=== PATIENT | female | born 1975 | race Hispanic/Latino ===

== ENCOUNTER 2020-08-16 20:35 | Emergency (ER) | payer OTHER ==
[2020-08-16] MEDS ORDERED: Acetaminophen 500 MG TAB ONE (21:05)
[2020-08-16] MEDS ORDERED: Ventolin HFA Inhaler 60 PUFF INHALER ONE (21:13)
[2020-08-16 21:16] LABS: #Monocytes 0.2 10x3/uL (0.0-1.1); %Basophils 0.2 % (0.0-2.0); %Lymphocytes 28.1 % (18.0-47.0); %Monocytes 2.6 % (0.0-10.0); %Neutrophils 68.8 % (40.0-75.0); Hemoglobin 14.8 g/dL (12.0-15.5); Mean Corpuscular HGB CONC 32.9 g/dL (32.0-36.0); Mean Corpuscular Hemoglobin 28.7 pg (27.0-33.0); Mean Corpuscular Volume 87.2 fl (81.6-98.3); Mean Platelet Volume 12.2 fl (7.4-10.4); Platelet Count 152 10x3/uL (150-450); RBC Distribution Width 12.4 % (11.5-14.5); Red Blood Cell (RBC) Count 5.16 10x6/uL (3.90-5.03); White Blood Cell (WBC) Count 5.8 10x3/uL (3.5-10.5)
[2020-08-16 21:33] LABS: ALT (SGPT) 51 U/L (8-55); AST (SGOT) 47 U/L (5-34); Alkaline Phosphatase 110 U/L (40-110); Anion Gap 16 mmol/L (10-20); BUN (Urea Nitrogen) 9 mg/dL (7.0-18.7); Bilirubin, Total 0.2 mg/dL (0.2-1.2); Calc. Creatinine Clearance 0 mL/min (70-130); Calcium 8.5 mg/dL (7.8-10.44); Carbon Dioxide 22 mmol/L (22-29); Chloride 100 mmol/L (98-107); Globulin 2.9 g/dL (2.4-3.5); Glucose 437 mg/dL (70-105); Potassium 4.4 mmol/L (3.5-5.1); Protein, Total 6.9 g/dL (6.0-8.3); Sodium 134 mmol/L (136-145)
[2020-08-16 22:00] LABS: Actual Bicarbonate (HCO3v) 25 mEq/L (22-28); Base Excess -0.5 mEq/L (-2.0 to +3.0); Chloride (VBG) 100 mmol/L (98-106); Hemoglobin (Hb) 14.9 g/dL (11.7-15.5); Potassium (VBG) 3.93 mmol/L (3.70-5.30); Puncture Site Other Site; RapidComm Collect By LAB; Sodium 135.4 mmol/L (133-146); pH (venous) 7.37 (7.32-7.43)
[2020-08-16 22:22] LABS: Bilirubin Neg (Negative); Blood, Urine Negative (Negative); Clarity Clear (Clear); Glucose, Urine (Dipstick) >=1000 mg/dL (Negative); Ketone, Urine Negative (Negative); Leukocyte Negative (Negative); Nitrite Negative (Negative); Protein, Urine (Dipstick) 30 mg/dl (Neg-Trace); Specific Gravity, Urine 1.005 (1.002-1.036); Urobilinogen Normal mg/dL (Less than 2)
[2020-08-16 22:36] LABS: Bacteria/HPF Rare-Few HPF (None Seen); RBC/HPF 0-3 HPF (0-3); Squamous Epithelial 0-3 HPF (0-3); WBC/HPF 0-3 HPF (0-3)
== END 2020-08-17 00:33 | disposition home or self-care (01) ==
LOC: CSHERS 20:35
DX: U07.1 COVID-19 (principal); J12.82 Pneumonia due to coronavirus disease 2019; E11.9 Type 2 diabetes mellitus without complications
CPT/HCPCS: 36415; 36416; 71045; 80053; 81003; 81015; 82010; 82805; 83605; 84484; 85025; 85379; 87040; 87086; 93005; 94664

== ENCOUNTER 2020-08-17 02:21 | Inpatient (IN) | payer OTHER ==
[2020-08-17 04:32] LABS: SARS-CoV-2 NAA Rapid Test DETECTED (NotDetected)
[2020-08-17] MEDS ORDERED: Bisacodyl 5 MG TAB PO PRN (07:32)
[2020-08-17] MEDS ORDERED: HYDROcodone/Acetaminophen 5/325 mg Tablet PO PRN (07:32)
[2020-08-17] MEDS ORDERED: Ondansetron PF 4 MG/2 ML Vial IVP PRN (07:32)
[2020-08-17] MEDS ORDERED: Dextrose 5% in Water 1,000 ML IV PRN (07:43)
[2020-08-17] MEDS ORDERED: Dextrose 50% Abboject 50 ML SYRINGE SLOW IVP PRN (07:43)
[2020-08-17] MEDS ORDERED: Acetaminophen 325 MG TAB ONE (08:57)
[2020-08-17] MEDS ORDERED: Enoxaparin Sodium 40 MG/0.4 ML SYRINGE SC SCH (09:00)
[2020-08-17] MEDS ORDERED: Dexamethasone 4 MG TAB ONE (10:00)
[2020-08-17] MEDS ORDERED: cefTRIAXone\\ROCEPHIN 2 GM VIAL ONE (10:01)
[2020-08-17] MEDS ORDERED: Ondansetron PF 4 MG/2 ML Vial ONE (10:01)
[2020-08-17] MEDS ORDERED: Enoxaparin Sodium 40 MG/0.4 ML SYRINGE ONE (10:01)
[2020-08-17] MEDS ORDERED: Famotidine/PF 20 mg/2ml Vial ONE (10:02)
[2020-08-17] MEDS: Ascorbic Acid 500 mg Chewable Tablet PO SCH (17:51)
[2020-08-17] MEDS: Dexamethasone 4 MG TAB PO SCH (17:51)
[2020-08-17] MEDS: Zinc Sulfate 220 MG CAP PO SCH (17:52)
[2020-08-17] MEDS: Famotidine/PF 20 mg/2ml Vial SLOW IVP SCH ×2 (17:52→21:32)
[2020-08-17] MEDS: cefTRIAXone\\ROCEPHIN 2 GM in Sodium Chloride 0.9% 100 ML IVPB SCH (17:52)
[2020-08-17] MEDS: HumaLOG 300 UNITS/3 ML VIAL SC PRN (17:53)
[2020-08-17] MEDS ORDERED: REMDESIVIR (EUA) 200 MG in Sodium Chloride 0.9% 250 ML 210 ML IV SCH (18:30)
[2020-08-17 18:40] VITALS: BMI 38.2
[2020-08-17] MEDS: Acetaminophen 325 MG TAB PO PRN (19:23)
[2020-08-17 21:40] LABS: Bilirubin Neg (Negative); Blood, Urine Negative (Negative); Clarity Clear (Clear); Glucose, Urine (Dipstick) 100 mg/dL (Negative); Ketone, Urine 50 mg/dL (Negative); Leukocyte 25 (Negative); Nitrite Negative (Negative); Protein, Urine (Dipstick) 100 mg/dl (Neg-Trace); Urobilinogen Normal mg/dL (Less than 2)
[2020-08-17 21:50] LABS: Bacteria/HPF 1+ HPF (None Seen); Mucous/LPF Rare LPF (<2+); RBC/HPF None Seen HPF (0-3)
[2020-08-18] MEDS: Acetaminophen 325 MG TAB PO PRN ×2 (01:15→06:31)
[2020-08-18 06:50] LABS: #Monocytes 0.2 10x3/uL (0.0-1.1); #Neutrophils 4.5 10x3/uL (1.5-8.4); %Basophils 0.1 % (0.0-2.0); %Lymphocytes 31.6 % (18.0-47.0); %Monocytes 3.2 % (0.0-10.0); %Neutrophils 64.5 % (40.0-75.0); Mean Corpuscular HGB CONC 33.1 g/dL (32.0-36.0); Mean Corpuscular Hemoglobin 29.3 pg (27.0-33.0); Mean Corpuscular Volume 88.5 fl (81.6-98.3); Mean Platelet Volume 11.7 fl (7.4-10.4); Platelet Count 161 10x3/uL (150-450); Red Blood Cell (RBC) Count 4.78 10x6/uL (3.90-5.03); White Blood Cell (WBC) Count 6.9 10x3/uL (3.5-10.5)
[2020-08-18 07:05] LABS: Anion Gap 15 mmol/L (10-20); BUN (Urea Nitrogen) 6 mg/dL (7.0-18.7); Calc. Creatinine Clearance 155 mL/min (70-130); Calcium 8.3 mg/dL (7.8-10.44); Carbon Dioxide 27 mmol/L (22-29); Chloride 102 mmol/L (98-107); Glucose 195 mg/dL (70-105); Potassium 3.7 mmol/L (3.5-5.1); Sodium 140 mmol/L (136-145)
[2020-08-18] MEDS: HumaLOG 300 UNITS/3 ML VIAL SC PRN ×4 (07:16→21:37)
[2020-08-18] MEDS: Famotidine/PF 20 mg/2ml Vial SLOW IVP SCH ×2 (09:45→21:37)
[2020-08-18] MEDS: Dexamethasone 4 MG TAB PO SCH (09:45)
[2020-08-18] MEDS: Enoxaparin Sodium 40 MG/0.4 ML SYRINGE SC SCH ×2 (09:45→21:36)
[2020-08-18] MEDS: Ascorbic Acid 500 mg Chewable Tablet PO SCH (09:45)
[2020-08-18] MEDS: Aspirin Chewable 81 MG TAB PO SCH (09:46)
[2020-08-18] MEDS: Zinc Sulfate 220 MG CAP PO SCH (09:46)
[2020-08-18] MEDS: cefTRIAXone\\ROCEPHIN 2 GM in Sodium Chloride 0.9% 100 ML IVPB SCH (09:59)
[2020-08-18 14:12] LABS: Hemoglobin A1c 9.9 % (4.0-6.0)
[2020-08-18] MEDS: REMDESIVIR (EUA) 100 MG in Sodium Chloride 0.9% 250 ML 230 ML IV SCH (17:23)
[2020-08-19] MEDS: HumaLOG 300 UNITS/3 ML VIAL SC PRN ×3 (06:43→21:38)
[2020-08-19] MEDS: Ascorbic Acid 500 mg Chewable Tablet PO SCH (09:05)
[2020-08-19] MEDS: Famotidine/PF 20 mg/2ml Vial SLOW IVP SCH ×2 (09:06→21:39)
[2020-08-19] MEDS: Aspirin Chewable 81 MG TAB PO SCH (09:06)
[2020-08-19] MEDS: Lantus 1000 UNITS/10 ML VIAL SC SCH (09:06)
[2020-08-19] MEDS: Enoxaparin Sodium 40 MG/0.4 ML SYRINGE SC SCH ×2 (09:06→21:39)
[2020-08-19] MEDS: Zinc Sulfate 220 MG CAP PO SCH (09:06)
[2020-08-19] MEDS: Dexamethasone 4 MG TAB PO SCH (09:45)
[2020-08-19] MEDS: cefTRIAXone\\ROCEPHIN 2 GM in Sodium Chloride 0.9% 100 ML IVPB SCH (09:46)
[2020-08-19] MEDS ORDERED: Milk Of Magnesia 30 ML UDCUP PO PRN (13:45)
[2020-08-19] MEDS: REMDESIVIR (EUA) 100 MG in Sodium Chloride 0.9% 250 ML 230 ML IV SCH (17:55)
[2020-08-20] MEDS: HumaLOG 300 UNITS/3 ML VIAL SC PRN ×3 (06:21→20:50)
[2020-08-20 06:42] LABS: Hemoglobin 14.3 g/dL (12.0-15.5); Mean Corpuscular HGB CONC 33.4 g/dL (32.0-36.0); Mean Corpuscular Hemoglobin 29.2 pg (27.0-33.0); Mean Corpuscular Volume 87.3 fl (81.6-98.3); Mean Platelet Volume 11.9 fl (7.4-10.4); Platelet Count 251 10x3/uL (150-450); RBC Distribution Width 12.7 % (11.5-14.5); White Blood Cell (WBC) Count 5.7 10x3/uL (3.5-10.5)
[2020-08-20 06:45] LABS: ALT (SGPT) 29 U/L (8-55); AST (SGOT) 25 U/L (5-34); Albumin 3.3 g/dL (3.5-5.0); Alkaline Phosphatase 82 U/L (40-110); Bilirubin, Direct 0.1 mg/dL (0.1-0.3); Bilirubin, Total 0.3 mg/dL (0.2-1.2); Protein, Total 6.4 g/dL (6.0-8.3)
[2020-08-20 06:50] LABS: Anion Gap 13 mmol/L (10-20); BUN (Urea Nitrogen) 15 mg/dL (7.0-18.7); Calc. Creatinine Clearance 167 mL/min (70-130); Calcium 8.5 mg/dL (7.8-10.44); Carbon Dioxide 25 mmol/L (22-29); Chloride 105 mmol/L (98-107); Glucose 251 mg/dL (70-105); Sodium 139 mmol/L (136-145)
[2020-08-20 08:31] LABS: MDiff Complete? YES
[2020-08-20 08:34] LABS: Band 1 % (5-11); Lymphocytes 31 % (21-51); Monocytes 7 % (0-10); Neutrophil 57 % (42-75); Reactive Lymphocytes 4 % (0-10)
[2020-08-20 08:35] LABS: Platelet Morphology Comment Appears Adequate
[2020-08-20 08:36] LABS: RBC Morphology Normal
[2020-08-20] MEDS: Famotidine/PF 20 mg/2ml Vial SLOW IVP SCH ×2 (09:49→20:40)
[2020-08-20] MEDS: Zinc Sulfate 220 MG CAP PO SCH (09:49)
[2020-08-20] MEDS: Enoxaparin Sodium 40 MG/0.4 ML SYRINGE SC SCH ×2 (09:49→20:40)
[2020-08-20] MEDS: Aspirin Chewable 81 MG TAB PO SCH (09:49)
[2020-08-20] MEDS: Dexamethasone 4 MG TAB PO SCH (09:49)
[2020-08-20] MEDS: Ascorbic Acid 500 mg Chewable Tablet PO SCH (09:49)
[2020-08-20] MEDS: cefTRIAXone\\ROCEPHIN 2 GM in Sodium Chloride 0.9% 100 ML IVPB SCH (09:58)
[2020-08-20] MEDS: Lantus 1000 UNITS/10 ML VIAL SC SCH (10:01)
[2020-08-20] MEDS: REMDESIVIR (EUA) 100 MG in Sodium Chloride 0.9% 250 ML 230 ML IV SCH (19:32)
[2020-08-21] MEDS: HumaLOG 300 UNITS/3 ML VIAL SC PRN ×3 (05:28→16:22)
[2020-08-21] MEDS: Ascorbic Acid 500 mg Chewable Tablet PO SCH (08:10)
[2020-08-21] MEDS: Famotidine/PF 20 mg/2ml Vial SLOW IVP SCH (08:10)
[2020-08-21] MEDS: Dexamethasone 4 MG TAB PO SCH (08:10)
[2020-08-21] MEDS: Zinc Sulfate 220 MG CAP PO SCH (08:10)
[2020-08-21] MEDS: Aspirin Chewable 81 MG TAB PO SCH (08:11)
[2020-08-21] MEDS: Enoxaparin Sodium 40 MG/0.4 ML SYRINGE SC SCH (08:11)
[2020-08-21] MEDS: Lantus 1000 UNITS/10 ML VIAL SC SCH (08:16)
[2020-08-21] MEDS: cefTRIAXone\\ROCEPHIN 2 GM in Sodium Chloride 0.9% 100 ML IVPB SCH (08:23)
[2020-08-21 09:23] LABS: ALT (SGPT) 24 U/L (8-55); AST (SGOT) 15 U/L (5-34); Albumin 3.3 g/dL (3.5-5.0); Alkaline Phosphatase 74 U/L (40-110); Bilirubin, Direct 0.2 mg/dL (0.1-0.3); Bilirubin, Total 0.4 mg/dL (0.2-1.2); Protein, Total 5.9 g/dL (6.0-8.3)
[2020-08-21 16:15] VITALS: BP 121/66; TEMP 98.2
[2020-08-21] MEDS: REMDESIVIR (EUA) 100 MG in Sodium Chloride 0.9% 250 ML 230 ML IV SCH (16:22)
== END 2020-08-21 18:47 | disposition home or self-care (01) | DRG 177 ==
LOC: CSHERS 02:21 → SUATTDRO 02:21 → CSHTELE 17:10
PROVIDERS: ADMIT Hospitalist; ATTEND Family Medicine
PROC: XW033E5 Introduction of Remdesivir Anti-infective into Peripheral Vein, Percutaneous Approach, New Technology Group 5 (ICD-10-PCS; principal; 2020-08-17)
PROC: 8E0ZXY6 Isolation (ICD-10-PCS; 2020-08-17)
DX: U07.1 COVID-19 (principal); J12.82 Pneumonia due to coronavirus disease 2019; J96.01 Acute respiratory failure with hypoxia; E11.9 Type 2 diabetes mellitus without complications
CPT/HCPCS: 36415; 36416; 71045; 80048; 80076; 81001; 83036; 84145; 85025; 85379; 85652; 86140; 87070; 87205; 93005; 94760; 96365; 96366; 96372; 96375; J0696; J1650; J1815; J2405; J3490; J7050; J8540; S0028; U0002